=== PATIENT | male | born 2000 | race Hispanic/Latino ===

== ENCOUNTER 2024-02-26 07:47 | Emergency (ER) | payer BC ==
[2024-02-26] VITALS (11 sets, daily range): BP systolic 118–134; BP diastolic 72–87
[~2024-02-26] VITALS: Ht 175.3 cm; Wt 63.5 kg
[2024-02-26] MEDS ORDERED: ONDANSETRON HCl 4 MG/2 ML SDV IV ONE (08:25)
[2024-02-26] MEDS ORDERED: KETOROLAC TROMETHAMINE 30 MG/ML SDV IV ONE (08:25)
[2024-02-26] MEDS ORDERED: SODIUM CHLORIDE 0.9% 1,000 ML IV ONE (08:25)
[2024-02-26 09:07] LABS: ALBUMIN 4.6 g/dL (3.2-5.0); BILIRUBIN, TOTAL 1.6 mg/dL (0.2-1.3); CREATININE 0.9 mg/dL (0.7-1.3); POTASSIUM 4.1 mmol/l (3.5-5.1); TOTAL PROTEIN 8.3 g/dL (6.3-8.2)
[2024-02-26 09:12] LABS: BASO% 0.4 % (0-3); EOS% 0.6 % (0-8); HEMATOCRIT 43.4 % (39.0-50.0); HEMOGLOBIN 15.3 g/dl (14.0-18.0); LYMPH% 33.2 % (15-41); MEAN CORPUSCULAR HGB 29.3 pG CALC (26.0-32.0); MEAN CORPUSCULAR HGB CONC 35.3 g/dL CAL (32.0-36.0); MONO% 6.5 % (2-13); NEUT# 3.09 thou/uL (1.82-7.42); NEUT% 59.3 % (42-76); RED BLOOD COUNT 5.23 mill/uL (4.70-6.10); RED CELL DISTRI WIDTH 12.9 % (11.5-15.5)
[2024-02-26] MEDS ORDERED: PEPCID20 MG PO (09:57)
[2024-02-26] MEDS ORDERED: TAM75CAP PO (09:57)
[2024-02-26] MEDS ORDERED: IBUPROFEN600 MG PO (09:57)
== END 2024-02-26 10:29 | disposition home or self-care (01) | DRG 195 ==
LOC: ED 07:47
PROVIDERS: Emergency Medicine
DX: J10.1 Influenza due to other identified influenza virus with other respiratory manifestations (principal); Z20.822 Contact with and (suspected) exposure to COVID-19
CPT/HCPCS: J2405